=== PATIENT | male | born 1965 ===

== ENCOUNTER 2024-08-22 13:11 | Outpatient (CLI) | payer OTHER, SELFPAY | END 2024-08-22 13:12 | disposition home or self-care (01) | LOC: LKVREF 13:11 | PROVIDERS: PCP Family Medicine; Visit Provider Family Medicine | DX: I10 Essential (primary) hypertension (principal); R53.83 Other fatigue; G40.909 Epilepsy, unspecified, not intractable, without status epilepticus; Z12.5 Encounter for screening for malignant neoplasm of prostate | CPT/HCPCS: 80053; 80061; 80177; G0103 ==

== ENCOUNTER 2024-10-06 13:27 | Outpatient (RCR) | payer OTHER, MEDICAID, SELFPAY ==
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
== END 2024-12-13 14:23 | disposition home or self-care (01) ==
PROVIDERS: PCP Family Medicine; Visit Provider Physician Assistant Medical
DX: S49.91XD Unspecified injury of right shoulder and upper arm, subsequent encounter (principal); M25.511 Pain in right shoulder; Z51.89 Encounter for other specified aftercare
CPT/HCPCS: 97110; 97161

== ENCOUNTER 2025-01-17 16:15 | Outpatient (CLI) | payer OTHER, MEDICAID, SELFPAY | END 2025-01-17 16:16 | disposition home or self-care (01) | LOC: NFLDREF 01-24 11:33 | PROVIDERS: PCP Family Medicine; Referring Provider Family Medicine; Visit Provider Nurse Practitioner Family | DX: R30.0 Dysuria (principal) | CPT/HCPCS: 87086 ==